=== PATIENT | male | born 1930 ===

== ENCOUNTER 2017-06-24 17:41 | Emergency (ER) | payer MEDICARE ==
[2017-06-24 17:51] VITALS: BP 130/73
[2017-06-24] MEDS ORDERED: Cephalexin CAP* 500 MG PO ONE ×2 (18:32)
--- NOTE | 2017-06-24 18:36 | UC ---
Skin Complaint HPI - HPI Summary HPI Summary: 87 yo male bumped and sustained an abrasion to his left arcos about a week ago has been keeping his abrasion clean now red no f/c no myalgias no pain but he has a neuropathy - History of Current Complaint Chief Complaint: UCLowerExtremity Time Seen by Provider: 06/24/17 18:25 Stated Complaint: LEFT LEG SKIN COMPLAINT Hx Obtained From: Patient Onset/Duration: Sudden Onset, Lasting Days Timing: Constant Onset Severity: Mild Current Severity: None Pain Intensity: 0 Pain Scale Used: 0-10 Numeric Location: Discrete Character: Redness Aggravating: Nothing Alleviating: Nothing Associated Signs & Symptoms: Positive: Drainage - slight Related History: Trauma - Allergy/Home Medications Allergies/Adverse Reactions: Allergies Allergy/AdvReac Type Severity Reaction Status Date / Time No Known Allergies Allergy Verified 06/24/17 17:51 Home Medications: Home Medications Aspirin [Aspirin 81 MG TAB] 81 mg PO DAILY 06/24/17 [History Confirmed 06/24/17] Carbamazepine [Carbatrol] 300 mg PO DAILY 06/24/17 [History Confirmed 06/24/17] Citalopram Hydrobromide [Celexa] 10 mg PO DAILY 06/24/17 [History Confirmed ] Cyanocobalamin [Vitamin B 12] 500 mcg PO DAILY 06/24/17 [History Confirmed 06/24] Isosorbide Dinitrate TAB* [Isordil TAB*] 40 mg PO TID 06/24/17 [History Confirmed 06/24/17] Levothyroxine TAB* [Synthroid TAB*] 25 mcg PO 0800 06/24/17 [History Confirmed 06/24/17] Metoprolol Succinate XL TAB* [Toprol XL TAB*] 50 mg PO DAILY 06/24/17 [History Confirmed 06/24/17] Simvastatin TAB(NF) [Zocor(NF)] 20 mg PO DAILY 06/24/17 [History Confirmed 06/24] carBAMazepine ER TAB(*) [TEGretol Xr TAB(*)] 200 mg PO DAILY 06/24/17 [History Confirmed 06/24/17] Review of Systems Constitutional: Negative Skin: Negative Eyes: Negative ENT: Negative Respiratory: Negative Cardiovascular: Negative Gastrointestinal: Negative Genitourinary: Negative Motor: Negative Neurovascular: Negative Musculoskeletal: Negative Neurological: Negative Psychological: Negative All Other Systems Reviewed And Are Negative: Yes PMH/Surg Hx/FS Hx/Imm Hx Previously Healthy: Yes Endocrine History: Dyslipidemia Cardiovascular History: Cardiac Disease, Hypertension - Surgical History Surgical History: Yes Surgery Procedure, Year, and Place: brain surgery 25 years ago. hernia repair - Family History Known Family History: Positive: Hypertension - Social History Alcohol Use: Rare Substance Use Type: None Smoking Status (MU): Former Smoker Type: Cigarettes When Did the Patient Quit Smoking/Using Tobacco: 60 years ago Physical Exam Triage Information Reviewed: Yes Appearance: Well-Appearing, No Pain Distress, Well-Nourished Vital Signs: Initial Vital Signs Temp 98.2 F 06/24/17 17:45 Pulse 72 06/24/17 17:45 Resp 18 06/24/17 17:45 BP 130/73 06/24/17 17:45 Pulse Ox 99 06/24/17 17:45 Vital Signs Reviewed: Yes Eyes: Positive: Conjunctiva Clear ENT: Positive: Hearing grossly normal. Negative: Nasal congestion, Nasal drainage, Trismus, Muffled/hoarse voice Neck: Positive: Supple, Nontender, No Lymphadenopathy Respiratory: Positive: Lungs clear, Normal breath sounds, No respiratory distress Cardiovascular: Positive: RRR, No Murmur Musculoskeletal: Positive: Edema @ - pre tibial Neurological: Positive: Alert Psychological Exam: Normal Skin Exam: Other - about 1 x 1 cm ulceration with 3x4cm of erthyema/not fluctuant Course/Dx - Diagnoses Provider Diagnoses: cellultis left arcos Discharge - Discharge Plan Condition: Stable Disposition: HOME Prescriptions: Cephalexin CAP* [Keflex CAP*] 500 mg PO QID #28 cap Patient Education Materials: Cellulitis (ED) Referrals: [place] PALM,Alex Hoang [Primary Care Provider] - 5 Days (if not better )
== END 2017-06-24 18:48 | disposition home or self-care (01) ==
LOC: UCCORT 17:41
DX: S80.812A Abrasion, left lower leg, initial encounter (principal); L03.116 Cellulitis of left lower limb; W22.8XXA Striking against or struck by other objects, initial encounter; Y93.9 Activity, unspecified; Y92.9 Unspecified place or not applicable; Z79.82 Long term (current) use of aspirin; E78.5 Hyperlipidemia, unspecified; I10 Essential (primary) hypertension; Z87.891 Personal history of nicotine dependence
CPT/HCPCS: 87070; 87077; 87186; 87205; 99202; A9270-GY; G0463